=== PATIENT | female | born 1970 | race Caucasian/White ===

== ENCOUNTER 2022-07-01 09:51 | Day surgery (SDC) | payer OTHER ==
[2022-06-24 12:58] VITALS: BMI 27.4
[2022-07-01] MEDS ORDERED: PROPOFOL 120 ML ONE (11:00)
[2022-07-01] MEDS ORDERED: LIDOCAINE HCL/PF 2% SDV 5ML VIAL ONE (11:00)
[2022-07-01 11:54] VITALS: BP 108/66; PULSE 80; RESP 20; TEMP 98.2
== END 2022-07-01 12:00 | disposition home or self-care (01) ==
LOC: FASU-ENDO 09:51
PROVIDERS: ATTEND Internal Medicine Gastroenterology
PROC: 0DJD8ZZ Inspection of Lower Intestinal Tract, Via Natural or Artificial Opening Endoscopic (ICD-10-PCS; principal; 2022-07-01 11:14)
DX: Z12.11 Encounter for screening for malignant neoplasm of colon (principal); K64.1 Second degree hemorrhoids; K64.8 Other hemorrhoids